=== PATIENT | female | born 1960 | race Caucasian/White ===

== ENCOUNTER → 2022-09-18 12:33 | Outpatient (CLI) | payer BC, SELFPAY ==
--- NOTE | ~2022-09-18 | CT_ITS ---
EXAMINATION: CT abdomen pelvis w con DATE: 09/18/2022 13:06 INDICATION: Left-sided abdominal pain, tenderness. Loose stools. TECHNIQUE: Computed tomography (CT) of the abdomen and pelvis was performed with 100 CC Omnipaque 350 intravenous contrast. Automated exposure control and iterative reconstruction technique were employe d. Exam dose: 969.80 mGy-cm total exam DLP. COMPARISON: None. FINDINGS: There are bilateral fat-containing foramen of Bochdalek hernias. The lung bases are clear o f infiltrate or consolidation. Normal heart size. No pericardial or pleural effusion. Very small sliding hiatal hernia. There are multiple scattered hepatic cysts, the largest measuring up to 3.5 cm approximate maximal di mension. The gallbladder is unremarkable. No bile duct or pancreatic duct dilatation. No pancreatic m ass lesion or calcification. Normal splenic size and density. Normal morphology of the adrenal glands. Minimal bilateral nonobstructive nephrolithiasis is suggested. Noncontrast CT renal examination would be more sensitive and accurate for detection of urinary tract calculi. No ureteral calculus or hydro ureteronephrosis. The urinary bladder is unremarkable. Status post hysterectomy. Normal caliber and minimal atherosclerotic calcification of the abdominal aorta and iliac arteries. N o intraperitoneal or retroperitoneal or pelvic mass lesion or adenopathy or ascites. Diverticulosis of the sigmoid and descending colon; no CT evidence of diverticulitis. Normal appendix . No bowel obstruction, bowel wall thickening, pneumatosis or intraperitoneal free air is detected. 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 Severe degenerative disc disease at L5-S1. No suspicious osteolytic or osteoblastic lesions are noted. IMPRESSION: Diverticulosis of the left colon; no CT evidence of diverticulitis, bowel obstruction or free air Normal appendix Multiple hepatic cysts Minimal bilateral nonobstructive nephrolithiasis suggested Bilateral foramen of Bochdalek fat-containing hernias Very small sliding hiatal hernia Bilateral L5 pars interarticularis defects with associated grade 1 anterolisthesis and severe degener ative disc disease at L5-S1 Reviewed, dictated and finalized at Location [facility]. Reviewed, dictated and finalized at location B. CLE FITTER IMPRESSION: Diverticulosis of the left colon; no CT evidence of diverticulitis , bowel obstruction or free air Normal appendix Multiple hepatic cysts Minimal bilateral nonobstructive nephrolithiasis suggested Bilateral foramen of Bochdalek fat-containing hernias Very small sliding hiatal hernia Bilateral L5 pars interarticularis defects with associated grade 1 anterolisthe sis and severe degenerative disc disease at L5-S1
[2022-09-18 12:55] LABS: Estimated Glomerular Filt Rate 56
== END ==
PROVIDERS: PCP Family Medicine; Visit Provider Nurse Practitioner Family
DX: R10.819 Abdominal tenderness, unspecified site (principal); R19.5 Other fecal abnormalities; R10.9 Unspecified abdominal pain; K57.90 Diverticulosis of intestine, part unspecified, without perforation or abscess without bleeding; K76.89 Other specified diseases of liver; N20.0 Calculus of kidney; K44.9 Diaphragmatic hernia without obstruction or gangrene; M43.16 Spondylolisthesis, lumbar region; M51.37 Other intervertebral disc degeneration, lumbosacral region
CPT/HCPCS: 74177; Q9967

== ENCOUNTER → 2022-10-08 12:12 | Outpatient (CLI) | payer BC, SELFPAY ==
--- NOTE | ~2022-10-08 | XR_ITS ---
EXAMINATION: XR abdomen/kub 1V DATE: 10/08/2022 12:48 INDICATION: Bilateral kidney stones. Left abdominal pain. TECHNIQUE: A supine view of the abdomen on 2 radiographs was obtained. COMPARISON: CT abdomen and pelvis 09/18/2022 FINDINGS: There are no dilated loops of bowel. There is a small volume of stool in the colon. IMPRESSION: 1. No visible urolithiasis. Reviewed, dictated and finalized at location A. FARM TECHNICIAN IMPRESSION: 1. No visible urolithiasis.
== END ==
PROVIDERS: PCP Family Medicine; Visit Provider Urology
DX: N20.0 Calculus of kidney (principal)
CPT/HCPCS: 74018

== ENCOUNTER 2022-11-18 00:09 | Day surgery (SDC) | payer BC, SELFPAY ==
[2022-11-08 13:17] VITALS: BMI 34.7
[2022-11-18 12:15] VITALS: BP 140/81; PULSE 72; RESP 18; TEMP 36.6; O2SAT 99
[2022-11-18] MEDS: LACTATED RINGERS 1,000 ML 150 ML IV CONT (12:26)
--- NOTE | 2022-11-18 12:53 | P.PNAN_ITS ---
Anes - Initial Pre Proc Eval Procedure: Operation Date: 11/18/22 13:30 Proposed Procedures p Esophagogastroduodenoscopy & Colonoscopy - Sebas Martinez MD Date/Time: 11/18/22 12:53 Surgeon: Sebas Martinez MD Pre Op Diagnosis: abdominal pain Patient Data Age: 62 Gender: F Height: 1.68 m Weight: 96.3 kg Last Vital Signs Temp 36.6 C 11/18/22 12:15 Pulse 72 11/18/22 12:15 Resp 18 11/18/22 12:15 BP 140/81 11/18/22 12:15 Pulse Ox 99 11/18/22 12:15 O2 Del Method Room Air 11/18/22 12:15 Allergies Allergy/AdvReac Type Severity Reaction Status Date / Time erythromycin base Allergy Unknown Nausea Verified 11/18/22 12:13 morphine Allergy Unknown Unknown Verified 11/18/22 12:13 Home Medications Medication Instructions Recorded Confirmed Type atorvastatin 40 mg tablet See Rx Instructions .Route 02/18/22 11/08/22 Rx .COMPLEX #90 tabs omeprazole 20 mg capsule,delayed 20 mg PO DAILY #30 caps 11/04/22 11/08/22 Rx release rifaximin 550 mg tablet (Xifaxan) 550 mg PO TID #42 tabs 11/04/22 11/08/22 Rx dicyclomine 20 mg tablet 20 mg PO .every 6 hours #120 tabs 11/06/22 11/08/22 Rx Patient hx anesthesia problems: none Family hx anesthesia problems: none Results Review: All pre-operative results and documents have been reviewed as part of the pre- operative evaluation. [facility] Past Medical History Medical History (Updated 11/18/22 @ 12:54 by Tereso Clay MD) Belching BMI 35.0-35.9,adult Colon cancer screening Dermatitis Diarrhea Dietary counseling and surveillance (05/22/16) Dyspnea on exertion Hematochezia Hyperlipidemia Injury of left foot Injury of left hip Wheezy bronchitis Family History Family History Father Hypertension Family history of elevated blood lipids Mother Family history of elevated blood lipids Family history of malignant neoplasm of breast in first degree relative Cerebrovascular accident Sibling Acute myocardial infarction Social History Social History (Reviewed 02/06/23 @ 08:31 by SHELLY Wallace Smoking status: Never smoker Alcohol intake: never Drinks per week: 0 Substance use: never Substance use type: does not use Living arrangements: alone Anes - Eval Final PreProcedure Day of Procedure 11/18/22 12:53 Patient weight: obese Heart: regular rate and rhythm Lungs: clear to auscultation and normal air movement Airway: Mallampati scale class II Neurological: alert and oriented Last oral intake: >/= 8 hours ASA classification: III Emergent: no Anesthetic plan: proceed Anesthesia type and monitoring: general GIVS Results Review: All pre-operative results and documents have been reviewed as part of the pre-o perative evaluation. Informed Consent: The patient's anesthetic plan and its attendant risks and benefits were discussed with the patient/family/POA. Questions were solicited and answers provided to the satisfaction of the patient/family/POA.
--- NOTE | 2022-11-18 13:05 | PM.HPGS ---
History of Present Illness History of Present Illness Consent: Risks, benefits, and alternatives have been discussed and questions answered. Patient agrees to proceed with procedure. Chief complaint: abdominal pain Narrative: Anabel Hope is a 62 year old female Who was referred for investigation of abdominal pain and a change in bowel habits. She recalls that in July she was taking antibiotics for sinus infection, then he did August after Anish republican she awoke with severe lower abdominal cramping and watery diarrhea. those symptoms have subsided. She is however due for colon cancer screening at this timeShe has had persistent soreness also just underneath the ribs on the left side of her abdomen. She thought this may have come on after she lifted a bail of hay. The CT scan showed nothing but some diverticulosis and possible kidney stone. This kidney stones were ruled out by Urology. She also then developed pain in the epigastric area in mid September which was quite severe but would feel better if she pressed in there with her hand. It tended come on after meal, at least initially. She is not on anti-inflammatory medications. She denies chronic heartburn or dysphagia he also has been belching quite a bit recently. She did lose about 10 lb because she was afraid to eat due to the pain. Her last colonoscopy was 12 years ago. Review of Systems Review of Systems: All systems reviewed & are unremarkable except as noted in HPI and below PMFSH Past Medical History Medical History Belching BMI 35.0-35.9,adult Colon cancer screening Dermatitis Diarrhea Dietary counseling and surveillance (05/22/16) Dyspnea on exertion Hematochezia Hyperlipidemia Injury of left foot Injury of left hip Wheezy bronchitis Family History Family History Father Hypertension Family history of elevated blood lipids Mother Family history of elevated blood lipids Family history of malignant neoplasm of breast in first degree relative Cerebrovascular accident Sibling Acute myocardial infarction Social History Social History Smoking status: Never smoker Alcohol intake: never Drinks per week: 0 Substance use: never Substance use type: does not use Living arrangements: alone Meds Home Medications and Allergies Home Medications Medication Instructions Recorded Confirmed Type atorvastatin 40 mg tablet See Rx Instructions .Route 02/18/22 11/08/22 Rx .COMPLEX #90 tabs omeprazole 20 mg capsule,delayed 20 mg PO DAILY #30 caps 11/04/22 11/08/22 Rx release rifaximin 550 mg tablet (Xifaxan) 550 mg PO TID #42 tabs 11/04/22 11/08/22 Rx dicyclomine 20 mg tablet 20 mg PO .every 6 hours #120 tabs 11/06/22 11/08/22 Rx Allergies Allergy/AdvReac Type Severity Reaction Status Date / Time erythromycin base Allergy Unknown Nausea Verified 11/18/22 12:13 morphine Allergy Unknown Unknown Verified 11/18/22 12:13 Vital Signs Vital Signs - 24 hr 11/18/22 12:15 Temperature 36.6 C Pulse Rate 72 Respiratory Rate 18 Blood Pressure 140/81 Pulse Oximetry 99 Oxygen Delivery Room Air Exam Const: General: alert Orientation/consciousness: patient oriented x3 Resp: Auscultation: clear to auscultation bilaterally Cardio: Rhythm: regular rhythm GI: GI Palp: Yes Soft to palpation and No Tenderness to palpation present (GI) Neuro: General: patient oriented x3 Assessment and Plan Assessment and plan (1) Change in bowel habits: Code(s): R19.4 - Change in bowel habit Status: Acute Assessment and Plan: EGD with possible biopsy or dilatation or cautery. (2) Colon cancer screening: Code(s): Z12.11 - Encounter for screening for malignant neoplasm of colon Status: Acute Assessment and Plan: Colonoscopy with pos
[2022-11-18] MEDS: SIMETHICONE ORAL SUSPENSION 20 MG/0.3 ML 30 ML BOTTLE 0.6 ML IRRIGATION (13:37)
--- NOTE | 2022-11-18 13:44 | SUR.OPER ---
EGD START: 1317; END: 1321. COLONOSCOPY START: 1329; END: 1342.
[2022-11-18 13:48] VITALS: BP 142/81; PULSE 65; RESP 17; O2SAT 96
[2022-11-18 13:58] VITALS: BP 141/78; PULSE 66; RESP 18; O2SAT 98
[2022-11-18 14:08] VITALS: BP 154/80; PULSE 64; RESP 18; O2SAT 98
== END 2022-11-18 14:25 | disposition home or self-care (01) ==
PROVIDERS: PCP Family Medicine; Visit Provider Internal Medicine Gastroenterology
PROC: 0DJ08ZZ Inspection of Upper Intestinal Tract, Via Natural or Artificial Opening Endoscopic (ICD-10-PCS; CPT 43235; principal; 2022-11-18 13:30)
DX: Z12.11 Encounter for screening for malignant neoplasm of colon (principal); K62.1 Rectal polyp; K57.30 Diverticulosis of large intestine without perforation or abscess without bleeding; K31.7 Polyp of stomach and duodenum; K21.9 Gastro-esophageal reflux disease without esophagitis; R19.7 Diarrhea, unspecified; E78.5 Hyperlipidemia, unspecified; E66.9 Obesity, unspecified; Z68.34 Body mass index [BMI] 34.0-34.9, adult
CPT/HCPCS: 45380; 43239; 88305; J2704; J7120

== ENCOUNTER → 2023-02-08 08:30 | Outpatient (CLI) | payer BC, SELFPAY ==
--- NOTE | ~2023-02-08 | MR_ITS ---
EXAMINATION: MR knee RT wo con DATE: 02/08/2023 09:18 INDICATION: Posterior right knee pain since 10/2022 s/p pulling right leg out of deep mild. TECHNIQUE: Magnetic resonance imaging (MRI) of the right knee was performed without intravenous contr ast. Sequences included axial PD-weighted FS FSE, coronal PD-weighted FSE and PD-weighted FS FSE, sag ittal PD-weighted FSE, and sagittal T2-weighted FS FSE. COMPARISON: X-ray right knee 01/30/2023, images only. FINDINGS: Medial compartment: Moderate diffuse cartilage thinning. Moderate osteophytosis. Apical blunting of the posterior horn. O blique posterior horn tear extending to the undersurface. Lateral compartment: Mild diffuse cartilage thinning. Moderate osteophytosis. Focal apical tear of the meniscal body. Patellofemoral compartment: Severe full-thickness cartilage loss along the medial facet. Mild osteophytosis. Retinacula intact. Ligaments and tendons: The ACL, PCL, MCL, and LCL are intact. Remaining flexor and extensor tendons are intact. Fluid: 1.4 x 5.0 cm multiloculated cystic collection in the medial soft tissues which appears to extend from the joint space, insinuating between fibers of the lateral capsule, semimembranosus, and pes anserin e tendons. Osseous/other: No suspicious focal or diffuse marrow signal. IMPRESSION: 1. Oblique undersurface and apical tears of the medial meniscus. 2. Apical tear of the body of the lateral meniscus. 3. 1.4 x 5.0 cm multiloculated medial cystic collection, may represent a perimeniscal cyst. 4. Moderate tricompartmental osteoarthritis. Reviewed, dictated and finalized at location K. IMPRESSION: 1. Oblique undersurface and apical tears of the medial meniscus. 2. Apical tear of the body of the lateral meniscus. 3. 1.4 x 5.0 cm multiloculated medial cystic collection, may represent a perime niscal cyst. 4. Moderate tricompartmental osteoarthritis.
== END ==
PROVIDERS: PCP Family Medicine; Visit Provider Orthopaedic Surgery
DX: S83.281A Other tear of lateral meniscus, current injury, right knee, initial encounter (principal); X58.XXXA Exposure to other specified factors, initial encounter; M17.11 Unilateral primary osteoarthritis, right knee
CPT/HCPCS: 73721

== ENCOUNTER 2023-03-05 00:35 | Day surgery (SDC) | payer BC, SELFPAY ==
[2023-03-03 10:05] VITALS: BMI 37.0
--- NOTE | 2023-03-03 10:21 | PC.NURSE ---
Report to the Outpatient Waiting Room, entrance under the green pavilion located off [facility], at time 6:00 on date 03/05/23. Planned Procedure Time: 7:30. Time changes happen often and if your time is changed the preop area will call you the afternoon before. - You and your visitor will be asked to self-screen and do not enter if you have any COVID symptoms. - A mask is optional within the hospital at this time. Patients may have clear liquids (water, carbonated beverages, clear teas, apple juice) until 3 hours prior to surgery with a maximum of 20 ounces. - No food from midnight until time of surgery Take the following medications with a SIP of water the morning of surgery: NONE DO NOT STOP ANY OF YOUR OTHER PRESCRIPTION MEDICATIONS PRIOR TO SURGERY?EXCEPT THE FOLLOWING Medications to discontinue per physician: N/A Date to take last dose: N/A Please no make-up, nail amharic, hairspray, perfume, deodorant, or body powder the day of surgery. No jewelry (including any body piercings) or valuables the day of surgery, leave them at home. Please take a shower or bath the night before, or the morning of, surgery with an antibacterial soap. Wear comfortable, loose fitting clothing. - Jewelry must be removed prior to entering the operating room. Rings and piercings that are not removed may be cut off. - The hospital will not accept responsibility for valuables. - Please leave all valuables, including medications, at home the day of surgery. If you are going home after surgery, a licensed driver license reviewing officer must drive you home. - NO public transportation without another adult if you receive anesthesia. - We recommend that an adult stay with you for 24 hours following discharge. - We also recommend that you do not drive, make important decision, drink alcoholic beverages, or take any drugs that were not prescribed by your health care provider for at least 24 hours after your discharge time. Follow any additional instructions given to you from your surgeon. If you or anyone in your household have experienced Covid symptoms in the past week, please notify your surgeon or the nurse liaison at the phone number below for possible testing. Telephone instructions given to PT - ADRIANA EPSTEIN and asked if any additional questions and then verbalized understanding. Patient advised to call surgeon office or pre surgery nurse liaison [phone] if any additional questions.
[2023-03-05] VITALS (16 sets, daily range): BP systolic 96–159; BP diastolic 52–88; PULSE 56–74; RESP 10–16; TEMP 36.4; O2SAT 90–100; BMI 37.2
[2023-03-05] MEDS: LACTATED RINGERS 1,000 ML 30 ML IV CONT ×3 (06:30→10:41)
[2023-03-05] MEDS: ACETAMINOPHEN 500 MG TABLET 1000 MG PO (06:31)
[2023-03-05] MEDS: CELECOXIB 200 MG CAPSULE PO (06:32)
--- NOTE | 2023-03-05 06:46 | WPDANESEPPF ---
Anes - Initial Pre Proc Eval Procedure: Operation Date: 03/05/23 07:30 Proposed Procedures p Right Knee Arthroscopy - Bharat Stephen MD Date/Time: 03/05/23 06:46 Surgeon: Bharat Stephen MD Pre Op Diagnosis: right knee medial and lateral mesicus tears Patient Data Age: 62 Gender: F Height: 1.68 m Weight: 104.7 kg Last Vital Signs Temp 36.4 C 03/05/23 06:00 Pulse 67 03/05/23 06:00 Resp 16 03/05/23 06:00 BP 146/77 H 03/05/23 06:00 Pulse Ox 98 03/05/23 06:00 O2 Del Method Room Air 03/05/23 06:00 Allergies Allergy/AdvReac Type Severity Reaction Status Date / Time morphine Allergy Unknown Unknown Verified 03/05/23 06:03 erythromycin base AdvReac Unknown Nausea Verified 03/05/23 06:03 Home Medications Medication Instructions Recorded Confirmed Type atorvastatin 40 mg tablet See Rx Instructions .Route 01/21/23 03/03/23 Rx .COMPLEX #90 tabs chlorhexidine gluconate 4 % 1 applic topical ONCE #237 mL 02/26/23 03/03/23 Rx topical liquid (Hibiclens) Patient hx anesthesia problems: none Family hx anesthesia problems: none Results Review: All pre-operative results and documents have been reviewed as part of the pre-operative evaluation. [facility] Past Medical History Medical History Belching BMI 35.0-35.9,adult Colon cancer screening Dermatitis Diarrhea Dietary counseling and surveillance (05/22/16) Dyspnea on exertion Fundic gland polyps of stomach, benign Hematochezia Hyperlipidemia Injury of left foot Injury of left hip Nonerosive esophageal reflux disease Wheezy bronchitis Surgical History Surgical History H/O breast biopsy (~1978) H/O: hysterectomy (~2003) History of (~1992) Family History Family History Father Hypertension Family history of elevated blood lipids Mother Family history of elevated blood lipids Family history of malignant neoplasm of breast in first degree relative Cerebrovascular accident Sibling Acute myocardial infarction Social History Social History Smoking status: Never smoker Alcohol intake: never Drinks per week: 0 Substance use: never Substance use type: does not use Living arrangements: with family Occupation/Education: occupation Additional occupation/education comments: [employer] Gender identity (if verbalized by the patient): Female Spiritual care concerns: No Anes - Eval Final PreProcedure Day of Procedure 03/05/23 06:46 Patient weight: obese Heart: regular rate and rhythm Lungs: clear to auscultation Airway: Mallampati scale class II Neurological: alert and oriented Last oral intake: >/= 8 hours ASA classification: III Emergent: no Anesthetic plan: proceed Anesthesia type and monitoring: general LMA and standard monitoring Results Review: All pre-operative results and documents have been reviewed as part of the pre-operative evaluation. Informed Consent: The patient's anesthetic plan and its attendant risks and benefits were discussed with the patient/family/POA. Questions were solicited and answers provided to the satisfaction of the patient/family/POA.
--- NOTE | 2023-03-05 07:15 | WPDHPUPDATE1 ---
History and Physical Update Update Date/Time: 03/05/23 07:15 History and Physical has been reviewed, including an updated exam of the patient. There are NO changes in the patient's condition. Risks, benefits, and alternatives have been discussed and questions answered. Patient agrees to proceed with procedure.
[2023-03-05] MEDS: ceFAZolin 2 GM/D5W 50 ML 2 GM/50 ML BAG IVPB (07:33)
[2023-03-05] MEDS: BUPivacaine HCL 0.5% 10 ML AMP 30 ML INFILTRATE (07:56)
[2023-03-05] MEDS: TRANEXAMIC ACID 1,000 MG/10 ML AMPUL 1000 MG IV PUSH (08:52)
--- NOTE | 2023-03-05 09:07 | W.PM.PROC2 ---
Procedure Note - Detailed Date of Procedure 03/05/23 Pre-op Diagnosis right knee medial and lateral mesicus tears Post-op Diagnosis Other (MEDIAL MENISCUS TEAR, SYNOVITIS) Procedure Performed RIGHT KNEE SCOPE Surgeon Bharat Stephen MD Anesthesia General Description of Procedure PATIENT WAS TAKEN TO THE OR. RIGHT LEG WAS PREPPED AND DRAPED STERILE. TROCARS WERE PLACED IN THE USUAL FASHION. CAMERA WAS INTRODUCED. THERE WAS CHONDROMALACIA TO THE PATELLA FEMORAL JOINT. THERE WAS A LOT OF SYNOVITIS IN ALL COMPARTMENTS. THE MEDIAL COMPARTMENT SHOWED CHONDROMALACIA TO THE MEDIAL FEMORAL CONDYLE. A SHAVER WAS USED TO PREFORM A CHONDROPLASTY. THERE WAS A COMPLEX MEDIAL MENISCUS TEAR AT THE ROOT. THE TEAR WAS BEYOND REPAIR. THE TEAR WAS RESECTED WITH A BITER AND A SHAVER DOWN TO A SMOOTH BASE. THE ACL WAS INTACT. THE LATERAL MENISCUS WAS NOT TORN BUT THERE WAS SOME FRAYING AT THE MAIN PART OF THE BODY. THERE WAS NO SIGNIFICANT CHONDROMALACIA. THE WAS EXTENSIVE SYNOVITIS IMPINGING ON THE LATERAL COMPARTMENT. A SYNOVECTOMY WAS PREFORMED. THE PATELLO FEMORAL JOINT UNDERWENT CHONDROPLASTY. THERE WAS GRADE 3 CHONDROMALACIA IN MOST OF THE TROCHLEA AND PART OF THE PATELLA. THERE WAS AN EXTENSIVE AMOUNT OF SYNOVITIS IN THE PATELLO FEMORAL AND SUPERIOR MEDIAL COMPARTMENT WITH SOME ADHESIONS WELL. SYNOVECTOMY WAS PREFORMED IN THE SUPERIOR MEDIAL COMPARTMENT AND IN HOFFAS SYNOVIUM. THE WOUNDS WERE APPROXIMATED WITH 4.0 NYLON. STERILE DRESSING WAS APPLIED. PATIENT WAS EXTUBATED. Estimated Blood Loss 20 Complications No immediate complications Condition Stable Disposition PACU
[2023-03-05] MEDS: fentaNYL CITRATE INJ (*CRX) 100 MCG/2 ML VIAL 25 MCG IV PUSH (09:21)
[2023-03-05] MEDS: ONDANSETRON INJ 4 MG/2 ML VIAL IV PUSH (09:58)
[2023-03-05] MEDS: SCOPOLAMINE 1.5 MG PATCH TRANSDERM (10:16)
[2023-03-05] MEDS: diphenhydrAMINE HCl INJ 50 MG/ML VIAL 12.5 MG IV PUSH ×2 (11:40→11:50)
== END 2023-03-05 14:09 | disposition home or self-care (01) ==
PROVIDERS: PCP Family Medicine; Visit Provider Orthopaedic Surgery
PROC: (CPT 29870; principal; 2023-03-05 07:30)
DX: S83.231A Complex tear of medial meniscus, current injury, right knee, initial encounter (principal); M65.861 Other synovitis and tenosynovitis, right lower leg; M94.261 Chondromalacia, right knee; X50.0XXA Overexertion from strenuous movement or load, initial encounter; E78.5 Hyperlipidemia, unspecified; E66.9 Obesity, unspecified; Z68.37 Body mass index [BMI] 37.0-37.9, adult
CPT/HCPCS: 29881; 29876; A9270; J0690; J1100; J1170; J1200; J2250; J2405; J2704; J3010; J7120

== ENCOUNTER 2023-03-10 09:20 | Outpatient (CLI) | payer BC, SELFPAY ==
--- NOTE | ~2023-03-10 | US_ITS ---
EXAMINATION: US venous doppler LE RT DATE: 03/10/2023 09:55 INDICATION: Right lower limb pain TECHNIQUE: Witt scale images without and with compression and Doppler images of the right lower extre mity veins were obtained. COMPARISON: None FINDINGS: The right common femoral vein, profunda femoral vein, femoral vein, popliteal vein, peronea l trunk, posterior tibial veins, and greater saphenous vein are patent. IMPRESSION: 1. Patent right lower extremity veins. No evidence of deep venous thrombosis. Reviewed, dictated and finalized at location A.
== END 2023-03-10 09:21 | disposition home or self-care (01) ==
PROVIDERS: PCP Family Medicine; Visit Provider Orthopaedic Surgery
DX: M79.661 Pain in right lower leg (principal)
CPT/HCPCS: 93971

== ENCOUNTER → 2023-04-05 11:22 | Outpatient (CLI) | payer BC, SELFPAY ==
--- NOTE | ~2023-04-05 | XR_ITS ---
EXAM: XR abdomen/kub 1V DATE: 04/05/2023 11:33 HISTORY: kindey stone f/u . COMPARISON: None available. FINDINGS: Clear lung bases. Normal bowel gas pattern. No organomegaly. No abnormal abdominal calcifi cation. Degenerative changes in the spine and hips. Stable compression deformities at the thoracolumb ar junction. IMPRESSION: No radiographic evidence of nephrolithiasis.. Reviewed, dictated and finalized at location K.
== END ==
PROVIDERS: PCP Family Medicine; Visit Provider Urology
DX: N20.0 Calculus of kidney (principal)
CPT/HCPCS: 74018

== ENCOUNTER 2023-07-28 15:59 | Outpatient (CLI) | payer BC, SELFPAY ==
--- NOTE | ~2023-07-28 | US_ITS ---
EXAMINATION: US venous doppler [facility] DATE: 07/28/2023 16:47 INDICATION: Left lower limb pain TECHNIQUE: Grayscale ultrasound images without and with compression and Doppler ultrasound images of the left lower extremity veins were obtained. COMPARISON: None. FINDINGS: The visualized portions of left common femoral vein, profunda (deep) femoral vein, femoral vein, popl iteal vein, peroneal veins, posterior tibial veins, gastrocnemius vein, lesser saphenous vein and gre ater saphenous vein outflow are patent. IMPRESSION: 1. No deep venous thrombosis in the left lower limb. Reviewed, dictated and finalized at location A.
== END 2023-07-28 16:00 | disposition home or self-care (01) ==
PROVIDERS: PCP Family Medicine; Visit Provider Physician Assistant Medical
DX: M79.662 Pain in left lower leg (principal); M79.89 Other specified soft tissue disorders
CPT/HCPCS: 93971

== ENCOUNTER → 2023-10-08 13:56 | Outpatient (CLI) | payer BC, SELFPAY ==
--- NOTE | ~2023-10-08 | MM_ITS ---
EXAMINATION: MM screening dean BI w pamella HISTORY: Screening mammogram, family history of breast cancer in her mother. TECHNIQUE: Craniocaudal and mediolateral oblique 3-D tomosynthesis images were obtained and synthetic 2-D images were generated. CAD analysis was submitted and interpreted. COMPARISON: 08/31/2019, 08/09/2019, 08/04/2018 BREAST PARENCHYMAL COMPOSITION: There are scattered areas of fibroglandular density. FINDINGS: No suspicious mass, calcification, or architectural distortion are identified in either jake ast to suggest malignancy. There has been no suspicious interval change. IMPRESSION: 1. No mammographic evidence of malignancy. 2. Recommend routine screening mammography in one year. BI-RADS Category 1: Negative Reviewed, dictated and finalized at location A. EYBALL REFEREE
== END ==
PROVIDERS: PCP Nurse Practitioner Family; Visit Provider Nurse Practitioner Family
DX: Z12.31 Encounter for screening mammogram for malignant neoplasm of breast (principal)
CPT/HCPCS: 77063; 77067

== ENCOUNTER 2025-07-26 08:28 | Outpatient (CLI) | payer MEDICARE, SELFPAY ==
--- NOTE | ~2025-07-26 | XR_ITS ---
EXAMINATION: XR knee RT 3V, 07/26/2025 8:34 CDT HISTORY: M25.561 - Pain in right knee COMPARISON: No comparisons available. Findings: No acute fracture or malalignment. Moderate tricompartmental degenerative changes Soft tissues unremarkable. Impression: No acute fracture or malalignment. Reviewed, dictated and finalized at location P. Impression: No acute fracture or malalignment.
== END 2025-07-26 08:29 | disposition home or self-care (01) ==
PROVIDERS: PCP Orthopaedic Surgery; Visit Provider Physician Assistant Medical
DX: M25.561 Pain in right knee (principal); G89.29 Other chronic pain
CPT/HCPCS: 73562

== ENCOUNTER 2025-09-14 16:08 | Outpatient (CLI) | payer MEDICARE, SELFPAY ==
--- NOTE | ~2025-09-14 | XR_ITS ---
XR lumbar spine min 4V Indication: M54.50 - Low back pain, unspecified Comparison: None Findings: Dextroconvex scoliosis. Moderate loss of vertebral height throughout. No fracture is identified, no subluxation flexion and extension. Grade 1 anterolisthesis of L5 on S1. Severe loss of disc at L5-S1. Soft tissues unremarkable Impression: No acute abnormality. Reviewed, dictated and finalized at location P. DAMAGE ESTIMATOR Impression: No acute abnormality.
== END 2025-09-14 16:09 | disposition home or self-care (01) ==
LOC: MICIMG 16:12
PROVIDERS: PCP Family Medicine; Visit Provider Nurse Practitioner Adult Health
DX: M54.50 Low back pain, unspecified (principal)
CPT/HCPCS: 72110